=== PATIENT | female | born 1945 | race Caucasian/White ===

== ENCOUNTER 2016-06-24 10:42 | Emergency (ER) | payer MEDICARE, OTHER ==
[2016-06-24 10:42] VITALS: BMI 26.2
[2016-06-24] MEDS ORDERED: TraMADol/Apap 37.5/325 mg Tab PO STA (11:04)
--- NOTE | 2016-06-24 11:08 | ED PDOC ---
Arrival/HPI - General Historian: Patient, Spouse - General Chief Complaint: Lower Extremity Problem/Injury Time Seen by Provider: 06/24/16 10:44 - History of Present Illness Narrative History of Present Illness (Text): 06/24/16 11:05 71 y/o female, pmh including hyperlipidemia, nkda, c/o rt. knee pain x 1 week with no fall or trauma. Aching pain, on and off, aggravated by walking, no change of the temperature of the feet, no dizziness, no headache or night sweat , no palpitation, no rash, no other medical or psychological complaints. (Brennon Mercer) Past Medical History - Provider Review Nursing Documentation Reviewed: Yes - Infectious Disease Hx of Infectious Diseases: None - Tetanus Immunization Tetanus Immunization: Unknown - Reproductive Menopause: Yes - Cardiac Hx Pacemaker: No - Neurological Hx Paralysis: No - Endocrine/Metabolic Hx Diabetes Mellitus Type 2: Yes - Hematological/Oncological Hx Blood Transfusions: No Hx Blood Transfusion Reaction: No - Musculoskeletal/Rheumatological Hx Musculoskeletal Disorders: No - Psychiatric Hx Emotional Abuse: No Hx Physical Abuse: No Hx Substance Use: No - Surgical History Hx Cholecystectomy: Yes Hx Hysterectomy: Yes - Anesthesia Hx Anesthesia Reactions: Yes Hx Malignant Hyperthermia: No - Suicidal Assessment Feels Threatened In Home Enviroment: No Family/Social History - Physician Review Nursing Documentation Reviewed: Yes Family/Social History: Unknown Family HX Smoking Status: Never Smoked Hx Alcohol Use: No Hx Substance Use: No Hx Substance Use Treatment: No Allergies/Home Meds Allergies/Adverse Reactions: Allergies seasonal Allergy (Uncoded 06/24/16 10:56) CONGESTION Home Medications: Home Meds Medication Instructions Recorded Confirmed Aspirin [Ecotrin] 81 mg PO DAILY 06/24/16 06/24/16 Simvastatin [Zocor] 0 mg PO DAILY 06/24/16 06/24/16 Review of Systems - Review of Systems Constitutional: absent: Fatigue, Fevers Eyes: absent: Vision Changes ENT: absent: Hearing Changes Respiratory: absent: Cough, Sputum Cardiovascular: absent: Chest Pain Gastrointestinal: absent: Abdominal Pain Musculoskeletal: Arthralgias. absent: Back Pain, Neck Pain, Joint Swelling, Myalgias Neurological: absent: Headache, Focal Weakness, Gait Changes Physical Exam Vital Signs Reviewed: Yes Temperature: Afebrile Blood Pressure: Normal Pulse: Regular Respiratory Rate: Normal Appearance: Positive for: Well-Appearing, Non-Toxic, Uncomfortable Pain Distress: Moderate Mental Status: Positive for: Alert and Oriented X 3 - Systems Exam Head: Present: Atraumatic, Normocephalic Pupils: Present: PERRL Extroacular Muscles: Present: EOMI Conjunctiva: Present: Normal Mouth: Present: Moist Mucous Membranes Neck: Present: Normal Range of Motion Respiratory/Chest: Present: Clear to Auscultation, Good Air Exchange. No: Respiratory Distress, Accessory Muscle Use Cardiovascular: Present: Regular Rate and Rhythm, Normal S1, S2. No: Murmurs Abdomen: Present: Normal Bowel Sounds. No: Tenderness, Distention, Peritoneal Signs Back: Present: Normal Inspection Upper Extremity: Present: Normal Inspection. No: Cyanosis, Edema Lower Extremity: Present: Normal Inspection, Other (Rt. knee: +ttp on the anterior and medial aspect of the knee with mild swelling, no cellulitis or streaking, no ulcers, negative edward and michele signs, FROM without limitation , sensation intact, motor 5/5, +DPPT pulses, capillary refill< 2 seconds, neurovascular intact. ). No: Edema Neurological: Present: GCS=15, Speech Normal, Motor Func Grossly Intact, Memory Normal Skin: Present: Warm, Dry, Normal Color. No: Rashes Psychiatric: Present: Alert, Oriented x 3, Normal Insight, Normal Concentration Vital Signs Temp Pulse Resp BP Pulse Ox 06/24/16 11:21 99.6 F 80 18 147/69 98 06/24/16 10:52 99.6 F 80 18 147/69 98 Medical Decision Making - RAD Interpretation Manager Filter: Radiologist ED Course and Treatment: I was available for consultation during PA evaluation. The chart was reviewed by me, and I agree with disposition. The documented history was done by the physician human resource statistician. The documented physical exam was done by the physician human resource statistician. The documented procedures were done by the physician human resource statistician. (Michele Lange) 06/24/16 11:08 -rt. knee xray -RLE venuous doppler -tramadol -observe and reassess 06/24/16 12:29 -RLE Venuous Doppler: as per preliminary report, no acute DVT -Rt. knee xray: show no fracture or dislocation -Pain decresed with the tramadol. -Cane and obed wrap ordered, advised bed rest and ice compression. -Pt. and the daughter request arthrocentesis which I don't recommend as there is no signs of infection , risk of infection will be greater than the temporary relief of the joint swelling. Plus the patient might need steroid injection as well. Pt. and the daughter agreed and they will follow up with her own orthopedic DR. Justice. -Pt. stated that she has gerd, will give tramadol. I checked the [facility] which the patient has not been prescribed narcotics in 2017 with no profiles can be located in the [facility] site. -Discharge home with tramadol, obed wrap, cane, ice compression, avoid walking, follow up with your own pmd and orthopedic Dr. Justice within 2 days, return to the ER for any new or worsening signs or symptoms. (Brennon Mercer) - RAD Interpretation Radiology Orders: 06/24/16 11:04 KNEE W PATELLA RIGHT 3 VIEW [RAD] Stat DUPLEX LOWER EXTRM VEIN RIGHT [US] Stat RLE Venuous Doppler: as per preliminary report, no acute DVT Rt. knee xray: no acute fracture (Brennon Mercer) - Medication Orders Current Medication Orders: Discontinued Medications Tramadol/Acetaminophen (Ultracet 37.5/325 Mg) 2 tab PO STAT STA Stop: 06/24/16 11:05 Last Admin: 06/24/16 12:10 Dose: 2 tab - PA / CLINICAL INFORMATICIST / Resident Statement MD/DO has reviewed & agrees with the documentation as recorded. Disposition/Present on Arrival - Present on Arrival Any Indicators Present on Arrival: No History of DVT/PE: No History of Uncontrolled Diabetes: No Urinary Catheter: No History of Decub. Ulcer: No History Surgical Site Infection Following: None - Disposition Have Diagnosis and Disposition been Completed?: Yes Disposition Time: 12:32 Patient Plan: Discharge - Disposition Diagnosis: Bursitis of right knee Disposition: HOME/ ROUTINE Patient Problems: Current Active Problems Problem Status Onset Bursitis of right knee Acute Condition: GOOD Additional Instructions: Discharge home with tramadol, obed wrap, cane, ice compression, avoid walking, follow up with your own pmd and orthopedic Dr. Justice within 2 days, return to the ER for any new or worsening signs or symptoms. Prescriptions: traMADol/Acetaminophen [Ultracet 37.5/325 mg] 2 tab PO QID PRN #16 tab PRN Reason: Other Referrals: [facility] Musa Realireza, [Primary Care Provider] - Follow up with primary Graham Justice MD [Staff Provider] - Follow up with primary [facility] [Outside] - Follow up with primary Forms: WORK NOTE
--- NOTE | 2016-06-24 11:41 | US ---
PROCEDURE: Right lower extremity venous US HISTORY: Leg pain and swelling. Evaluate for DVT. PHYSICIAN(S): Andres Dial M.D. TECHNIQUE: Duplex sonography and color-flow Doppler with graded compression were used to evaluate the deep venous system of the right lower extremity. FINDINGS: The visualized deep venous system of the right lower extremity is sonographically normal and compressible. Normal waveforms and augmentation are seen. There is no sonographic evidence for deep venous thrombosis in the visualized segments of the right lower extremity. IMPRESSION: 1. No sonographic evidence for deep venous thrombosis in the visualized segments of the right lower extremity.
--- NOTE | 2016-06-24 12:29 | RAD ---
PROCEDURE: Right Knee Radiographs. HISTORY: rt. knee pain x 1 week COMPARISON: None. FINDINGS: BONES: No acute fracture. There is a bone fragment adjacent to the head of the fibula that is most likely a chronic injury JOINTS: Normal. No osteoarthritis. JOINT EFFUSION: None. OTHER FINDINGS: None. IMPRESSION: No acute fracture
[2016-06-24 12:41] VITALS: BP 145/65; PULSE 75; TEMP 98.7
[2016-06-24 12:44] VITALS: RESP 16; O2SAT 99
== END 2016-06-24 12:43 | disposition home or self-care (01) ==
LOC: ED 10:42
DX: M71.9 Bursopathy, unspecified (principal); E78.5 Hyperlipidemia, unspecified; E11.9 Type 2 diabetes mellitus without complications

== ENCOUNTER 2017-03-23 12:55 | Emergency (ER) | payer MEDICARE, OTHER ==
[2017-03-23 13:54] VITALS: BP 157/78; PULSE 71; RESP 18; TEMP 98.4; O2SAT 97; BMI 26.7
--- NOTE | 2017-03-23 14:41 | ED PDOC ---
Arrival/HPI - General Chief Complaint: Rib Injury Time Seen by Provider: 03/23/17 13:44 Historian: Patient - History of Present Illness Narrative History of Present Illness (Text): 03/23/17 13:45 Dara Navarro is a 72 year old female, whose past medical history includes high cholesterol and arthritis, who presents to the emergency department complaining of right sided lower rib, right shoulder, and right knee pain s/p falling on her right side 3 days ago. Patient states that three days ago she missed a step while walking down the steps and tripped. No LOC or head injury. Patient denies any fever, chills, shortness of breath, nausea, vomiting, diarrhea, urinary symptoms, headache, dizziness, or any other complaints. PMD: Dr. Dial Time/Duration: < week Symptom Onset: Sudden Symptom Course: Unchanged Activities at Onset: Significant Context: Walking Past Medical History - Provider Review Nursing Documentation Reviewed: Yes - Infectious Disease Hx of Infectious Diseases: None - Tetanus Immunization Tetanus Immunization: Unknown - Cardiac Hx Cardiac Disorders: Yes - Pulmonary Hx Respiratory Disorders: No - Neurological Hx Neurological Disorder: No - HEENT Hx HEENT Disorder: No - Renal Hx Renal Disorder: No - Endocrine/Metabolic Hx Endocrine Disorders: Yes Hx Diabetes Mellitus Type 2: Yes - Hematological/Oncological Hx Blood Disorders: No - Integumentary Hx Dermatological Disorder: Yes - Musculoskeletal/Rheumatological Hx Musculoskeletal Disorders: Yes Hx Arthritis: Yes - Gastrointestinal Hx Gastrointestinal Disorders: No - Genitourinary/Gynecological Hx Genitourinary Disorders: No - Psychiatric Hx Psychophysiologic Disorder: No Hx Substance Use: No - Surgical History Hx Cholecystectomy: Yes Hx Hysterectomy: Yes - Anesthesia Hx Anesthesia: Yes Hx Anesthesia Reactions: Yes Hx Malignant Hyperthermia: No - Suicidal Assessment Feels Threatened In Home Enviroment: No Family/Social History - Physician Review Nursing Documentation Reviewed: Yes Family/Social History: No Known Family HX Smoking Status: Never Smoked Hx Alcohol Use: No Hx Substance Use: No Hx Substance Use Treatment: No Allergies/Home Meds Allergies/Adverse Reactions: Allergies seasonal Allergy (Uncoded 06/24/16 10:56) CONGESTION Home Medications: Home Meds Medication Instructions Recorded Confirmed Aspirin [Ecotrin] 81 mg PO DAILY 06/24/16 06/24/16 Simvastatin [Zocor] 0 mg PO DAILY 06/24/16 06/24/16 Review of Systems - Review of Systems Constitutional: absent: Fevers, Night Sweats Eyes: absent: Vision Changes ENT: absent: Hearing Changes Respiratory: absent: SOB, Cough Cardiovascular: absent: Chest Pain Gastrointestinal: absent: Abdominal Pain Genitourinary Female: absent: Dysuria, Frequency Musculoskeletal: Other (Right-sided lower rib, right shoulder, and right knee pain) Skin: absent: Rash Neurological: absent: Headache Endocrine: absent: Diaphoresis Hemo/Lymphatic: absent: Adenopathy Psychiatric: absent: Anxiety, Depression Physical Exam Vital Signs Reviewed: Yes Vital Signs Temp Pulse Resp BP Pulse Ox 03/23/17 13:49 98.4 F 71 18 157/78 H 97 Temperature: Afebrile Blood Pressure: Hypertensive Pulse: Regular Respiratory Rate: Normal Appearance: Positive for: Well-Appearing, Non-Toxic, Comfortable Pain Distress: None Mental Status: Positive for: Alert and Oriented X 3 - Systems Exam Head: Present: Atraumatic, Normocephalic Pupils: Present: PERRL Extroacular Muscles: Present: EOMI Conjunctiva: Present: Normal Mouth: Present: Moist Mucous Membranes Neck: Present: Normal Range of Motion. No: MIDLINE TENDERNESS, Paraspinal Tenderness Respiratory/Chest: Present: Tender to Palpation (Tenderness to lateral and anterior lower ribs) Cardiovascular: Present: Regular Rate and Rhythm, Normal S1, S2. No: Murmurs Abdomen: Present: Normal Bowel Sounds. No: Tenderness, Distention, Peritoneal Signs Back: Present: Normal Inspection. No: CVA Tenderness, Midline Tenderness, Paraspinal Tenderness Upper Extremity: Present: Tenderness (to right anterior shoulder; left shoulder normal; Full ROM bilaterally), Other (hypothenar of right hand; left normal ) Lower Extremity: Present: Other (Hips normal; no midline tenderness) Neurological: Present: GCS=15, CN II-XII Intact, Speech Normal Skin: Present: Warm, Dry, Normal Color. No: Rashes Psychiatric: Present: Alert, Oriented x 3, Normal Insight, Normal Concentration Medical Decision Making ED Course and Treatment: 03/23/17 14:48 Impression: 72 year old complaining of right sided lower rib, right shoulder, and right knee pain s/p falling on her right side 3 days ago. Differential Diagnosis included but are not limited to: Mechanical Fall Plan: -- Right hand X-ray -- Right Ribs and Chest X-ray -- Right shoulder X-ray -- Tylenol and Toradol -- Reassess and disposition Prior Visits: Notes and results from previous visits were reviewed. Patient was last seen in the emergency department on 06/24/16 for rt. knee pain x 1 week. Patient was discharged home. Progress Notes: 03/23/17 15:40 Right Hand x-ray: Creator : Zaira Lomeli MD FINDINGS: BONES:There is no acute displaced fracture or bone destruction. There is diffuse bone demineralization. 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 There is also severe degenerative osteoarthrosis in the 1st [facility] joint. There is moderate degenerative osteoarthrosis in the distal interphalangeal joints and mild degenerative osteoarthrosis in the proximal interphalangeal joints. SOFT TISSUES:Normal. OTHER FINDINGS:None. IMPRESSION: No acute fracture or dislocation. 03/23/17 15:41 Chest and Right Rib x-ray: Creator : Zaira Lomeli MD FINDINGS: RIGHT RIBS:There is no acute fracture or bone destruction. There is diffuse bone demineralization. LUNGS:The lungs are well inflated and clear PLEURA:No pneumothorax or pleural fluid. CARDIOVASCULAR:Normal sized heart. No pulmonary vascular congestion. OTHER FINDINGS:None. IMPRESSION: No acute rib fracture. Clear lungs. 03/23/17 15:42 Right Shoulder X-ray: Creator : Zaira Lomeli MD FINDINGS: BONES:There is diffuse bone demineralization. There is no acute displaced fracture or bone destruction JOINTS:There is mild degenerative osteoarthrosis in the acromioclavicular joint. The glenohumeral joint is normal. SOFT TISSUES:Normal. OTHER FINDINGS:None. IMPRESSION: No acute fracture or dislocation. Patient's Xrays are negative for fracture. Patient was given instructions for incentive spirametry to use at home. She was advised to take motrin for pain. She was advised to return to the ED with any shortness of breathe or with any concerns. - RAD Interpretation Radiology Orders: 03/23/17 13:57 HAND RIGHT 3 VIEWS [RAD] Stat RIBS RIGHT & PA CHEST [RAD] Stat SHOULDER RIGHT [RAD] Stat - Medication Orders Current Medication Orders: Discontinued Medications Acetaminophen (Tylenol 325mg Tab) 650 mg PO STAT STA Stop: 03/23/17 13:57 Last Admin: 03/23/17 15:07 Dose: 650 mg MAR Pain/Vitals Document 03/23/17 15:07 OCS (Rec: 03/23/17 15:07 OCS [place] [id number]) Pain Reassessment Is This A Pain ReAssessment? Yes Sleep Is patient sleeping during reassessment? No Presence of Pain Presence of Pain Yes Pain Scale Used Pain Scale Used Numeric Location Left, Right or Bilateral Left Pain Location Body Site Abdomen Description Constant Intensity 8 Scale Used Numeric Aggravating Factors ADL's Ketorolac Tromethamine (Toradol) 30 mg IM STAT STA Stop: 03/23/17 13:58 Last Admin: 03/23/17 15:05 Dose: 30 mg MAR Pain Assessment Document 03/23/17 15:05 OCS (Rec: 03/23/17 15:07 [facility] Pain Reassessment Is this a pain reassessment? Yes Sleep Is patient sleeping during reassessment? No Presence of Pain Presence of Pain Yes Pain Scale Used Pain Scale Used Numeric Location Pain Location Body Site Abdomen Description Description Constant Intensity of Pain at present 8 IM Administration Charges Document 03/23/17 15:05 OCS (Rec: 03/23/17 15:07 [email or web address] Injection Site MAR Injection Site Left Arm Charges for Administration # of IM Administrations 1 - Scribe Statement The provider has reviewed the documentation as recorded by the Nisreen Zamora Provider Scribe Attestation: All medical record entries made by the Scribe were at my direction and personally dictated by me. I have reviewed the chart and agree that the record accurately reflects my personal performance of the history, physical exam, medical decision making, and the department course for this patient. I have also personally directed, reviewed, and agree with the discharge instructions and disposition. Disposition/Present on Arrival - Present on Arrival Any Indicators Present on Arrival: No History of DVT/PE: No History of Uncontrolled Diabetes: No Urinary Catheter: No History of Decub. Ulcer: No History Surgical Site Infection Following: None - Disposition Have Diagnosis and Disposition been Completed?: Yes Diagnosis: Rib contusion, Shoulder contusion Disposition: HOME/ ROUTINE Disposition Time: 15:55 Patient Plan: Discharge Condition: IMPROVED Discharge Instructions (ExitCare): Shoulder Pain (ED), Rib Contusion (ED) Additional Instructions: Ms Godoyde, thank you for letting us take care of you today. Your provider was Dr. Gerber. You were treated for Rib contusion, Shoulder Contusion. The emergency medical care you received today was directed at your acute symptoms. If you were prescribed any medication, please fill it and take as directed. It may take several days for your symptoms to resolve. Return to the Emergency Department if your symptoms worsen, do not improve, or if you have any other problems. Please contact your doctor or call one of the physicians/clinics you have been referred to that are listed on the Patient Visit Information form that is included in your discharge packet. Bring any paperwork you were given at discharge with you along with any medications you are taking to your follow up visit. Our treatment cannot replace ongoing medical care by a primary care provider (PCP) outside of the emergency department. Thank you for allowing the [email or web address] team to be part of your care today. If you had an X-Ray or CT scan: A Radiologist will review the ED reading if any change in treatment is needed we will contact you. If you had a blood, urine, or wound culture: It will take several days for the results, if any change in treatment is needed we will contact you. If you had an STI test: It will take 48 hours for the results. Please call after 1 week if you have not heard back. Prescriptions: Ibuprofen [Motrin] 600 mg PO Q6 PRN #30 tab PRN Reason: Pain, Moderate (4-7) Referrals: Link Manuel MD [Primary Care Provider] - Follow up with primary Forms: [employer] (Maltese)
--- NOTE | 2017-03-23 15:25 | RAD ---
PROCEDURE: Right Hand Radiographs. HISTORY: fall r/o fx COMPARISON: None. FINDINGS: BONES: There is no acute displaced fracture or bone destruction. There is diffuse bone demineralization. 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 There is also severe degenerative osteoarthrosis in the [facility]st [facility] joint. There is moderate degenerative osteoarthrosis in the distal interphalangeal joints and mild degenerative osteoarthrosis in the proximal interphalangeal joints. SOFT TISSUES: Normal. OTHER FINDINGS: None. IMPRESSION: No acute fracture or dislocation.
--- NOTE | 2017-03-23 15:26 | RAD ---
PROCEDURE: Radiographs of the Right Shoulder HISTORY: fall r/o fx COMPARISON: No prior. FINDINGS: BONES: There is diffuse bone demineralization. There is no acute displaced fracture or bone destruction JOINTS: There is mild degenerative osteoarthrosis in the acromioclavicular joint. The glenohumeral joint is normal. SOFT TISSUES: Normal. OTHER FINDINGS: None. IMPRESSION: No acute fracture or dislocation.
--- NOTE | 2017-03-23 15:28 | RAD ---
PROCEDURE: Radiographs of the Chest and Right Ribs. HISTORY: fall r/o fx COMPARISON: 10/07/2014. TECHNIQUE: Frontal radiograph of the chest and multiple oblique radiographs of the right ribs were obtained. FINDINGS: RIGHT RIBS: There is no acute fracture or bone destruction. There is diffuse bone demineralization. LUNGS: The lungs are well inflated and clear PLEURA: No pneumothorax or pleural fluid. CARDIOVASCULAR: Normal sized heart. No pulmonary vascular congestion. OTHER FINDINGS: None. IMPRESSION: No acute rib fracture. Clear lungs.
== END 2017-03-23 16:05 | disposition home or self-care (01) ==
LOC: ED 12:55
DX: S20.211A Contusion of right front wall of thorax, initial encounter (principal); S40.011A Contusion of right shoulder, initial encounter; W10.9XXA Fall (on) (from) unspecified stairs and steps, initial encounter; Y92.9 Unspecified place or not applicable
CPT/HCPCS: 71101; 73030; 73130; 96372; 99283; J1885

== ENCOUNTER 2017-11-11 17:52 | Emergency (ER) | payer MEDICARE ==
[2017-11-11 17:53] VITALS: BMI 26.7
[2017-11-11 18:29] VITALS: BP 165/90; RESP 18; O2SAT 97
--- NOTE | 2017-11-11 19:26 | ED PDOC ---
Arrival/HPI - General Chief Complaint: Cough, Cold, Congestion Time Seen by Provider: 11/11/17 18:24 Historian: Patient - History of Present Illness Narrative History of Present Illness (Text): 11/11/17 19:16 72yo female with no pmhx present with 2days history of nonproductive cough, fever, lower back pain. States she took unknown analgesic yesterday. She denies chest pain, SOB, sick contact, travel, any other complaint. Past Medical History - Provider Review Nursing Documentation Reviewed: Yes - Infectious Disease Hx of Infectious Diseases: None - Tetanus Immunization Tetanus Immunization: Unknown - Reproductive Menopause: Yes - Cardiac Hx Cardiac Disorders: Yes - Pulmonary Hx Respiratory Disorders: No - Neurological Hx Neurological Disorder: No - HEENT Hx HEENT Disorder: No - Renal Hx Renal Disorder: No - Endocrine/Metabolic Hx Endocrine Disorders: Yes Hx Diabetes Mellitus Type 2: Yes - Hematological/Oncological Hx Blood Disorders: No - Integumentary Hx Dermatological Disorder: Yes - Musculoskeletal/Rheumatological Hx Musculoskeletal Disorders: Yes Hx Arthritis: Yes - Gastrointestinal Hx Gastrointestinal Disorders: No - Genitourinary/Gynecological Hx Genitourinary Disorders: No - Psychiatric Hx Psychophysiologic Disorder: No Hx Substance Use: No - Surgical History Hx Cholecystectomy: Yes Hx Hysterectomy: Yes - Anesthesia Hx Anesthesia: Yes Hx Anesthesia Reactions: Yes Hx Malignant Hyperthermia: No - Suicidal Assessment Feels Threatened In Home Enviroment: No Family/Social History - Physician Review Nursing Documentation Reviewed: Yes Family/Social History: Unknown Family HX Smoking Status: Never Smoked Hx Alcohol Use: No Hx Substance Use: No Hx Substance Use Treatment: No Allergies/Home Meds Allergies/Adverse Reactions: Allergies seasonal Allergy (Uncoded 03/23/17 23:16) CONGESTION Home Medications: Home Meds Medication Instructions Recorded Confirmed Aspirin [Ecotrin] 81 mg PO DAILY 06/24/16 06/24/16 Simvastatin [Zocor] 0 mg PO DAILY 06/24/16 06/24/16 Review of Systems - Physician Review All systems were reviewed & negative as marked: Yes - Review of Systems Constitutional: Fevers Eyes: Normal ENT: Normal Respiratory: Cough. absent: SOB, Sputum, Wheezing Cardiovascular: Normal Gastrointestinal: Normal Genitourinary Female: Normal Musculoskeletal: Normal Skin: Normal Neurological: Normal Endocrine: Normal Hemo/Lymphatic: Normal Psychiatric: Normal Physical Exam Vital Signs Reviewed: Yes Vital Signs Temp Pulse Resp BP Pulse Ox 11/11/17 21:17 99.6 F 90 18 97 11/11/17 21:04 99.6 F 11/11/17 20:34 100.3 F H 11/11/17 18:22 100.1 F H 92 H 18 165/90 H 97 Temperature: Febrile Blood Pressure: Normal Pulse: Regular Respiratory Rate: Normal Appearance: Positive for: Well-Appearing, Non-Toxic, Comfortable Pain Distress: None Mental Status: Positive for: Alert and Oriented X 3 - Systems Exam Head: Present: Atraumatic, Normocephalic Pupils: Present: PERRL Extroacular Muscles: Present: EOMI Conjunctiva: Present: Normal Mouth: Present: Moist Mucous Membranes Neck: Present: Normal Range of Motion Respiratory/Chest: Present: Clear to Auscultation, Good Air Exchange. No: Respiratory Distress, Accessory Muscle Use, Wheezes, Decreased Breath Sounds, Rales, Retracting, Rhonchi Cardiovascular: Present: Regular Rate and Rhythm, Normal S1, S2. No: Murmurs Abdomen: No: Tenderness, Distention, Peritoneal Signs Back: Present: Normal Inspection Upper Extremity: Present: Normal Inspection. No: Cyanosis, Edema Lower Extremity: Present: Normal Inspection. No: Edema Neurological: Present: GCS=15, CN II-XII Intact, Speech Normal Skin: Present: Warm, Dry, Normal Color. No: Rashes Psychiatric: Present: Alert, Oriented x 3, Normal Insight, Normal Concentration Medical Decision Making ED Course and Treatment: 11/13/17 14:41 PT presented for stated history. sh was not hypoxic and in no distress. Lab was unremarkable. Xray - NAD Result was DW the pt. she was placed on abx secondary to her symptoms and fever. Referred to her PMD. TRT ED for any new or worsening symptoms - Lab Interpretations Microbiology Results: Microbiology Results 11/11/17 20:09 Blood-Venous Blood Culture - Preliminary NO GROWTH AFTER 24 HOURS 11/11/17 19:39 Blood-Venous Blood Culture - Preliminary NO GROWTH AFTER 24 HOURS Lab Results: 11/11/17 19:39 11/11/17 19:39 Lab Results 11/11/17 19:39: Sodium 139, Potassium 4.3, Chloride 104, Carbon Dioxide 28, Anion Gap 12, BUN 13, Creatinine 0.6 L, Est GFR ( Amer) > 60, Est GFR ( Non-Af Amer) > 60, Random Glucose 121 H, Calcium 9.3, Total Bilirubin 1.1, AST 34, ALT 26, Alkaline Phosphatase 66, Total Protein 7.7, Albumin 4.3, Globulin 3.4, Albumin/Globulin Ratio 1.2 11/11/17 19:39: PT 11.1, INR 0.97, APTT 30.3 11/11/17 19:39: WBC 9.4, RBC 4.31, Hgb 13.2, Hct 39.1, MCV 90.7, MCH 30.6, MCHC 33.8, RDW 14.3, Plt Count 228, MPV 9.6, Gran % 74.6 H, Lymph % (Auto) 17.3 L, [place] % (Auto) 5.5, Eos % (Auto) 2.5, Baso % (Auto) 0.1, Gran # 6.99 H, Lymph # ( Auto) 1.6, [place] # (Auto) 0.5, Eos # (Auto) 0.2, Baso # (Auto) 0.01 - RAD Interpretation Radiology Orders: 11/11/17 18:33 CHEST TWO VIEWS (PA/LAT) [RAD] Stat - Medication Orders Current Medication Orders: Discontinued Medications Acetaminophen (Tylenol 325mg Tab) 650 mg PO STAT STA Stop: 11/11/17 19:17 Last Admin: 11/11/17 19:43 Dose: 650 mg MAR Pain/Vitals Document 11/11/17 19:43 SS (Rec: 11/11/17 19:43 SS [id number]) Pain Reassessment Is This A Pain ReAssessment? No Sleep Is patient sleeping during reassessment? No Presence of Pain Presence of Pain No Amoxicillin/Clavulanate Potassium (Augmentin 500 Mg-125 Mg Tab) 1 tab PO STAT STA PRN Reason: Protocol Stop: 11/11/17 20:59 Last Admin: 11/11/17 21:14 Dose: 1 tab Benzonatate (Tessalon Perles) 100 mg PO TID STA Stop: 11/11/17 20:59 Last Admin: 11/11/17 21:14 Dose: 100 mg Disposition/Present on Arrival - Present on Arrival Any Indicators Present on Arrival: No History of DVT/PE: No History of Uncontrolled Diabetes: No Urinary Catheter: No History of Decub. Ulcer: No History Surgical Site Infection Following: None - Disposition Have Diagnosis and Disposition been Completed?: Yes Diagnosis: Cough Disposition: HOME/ ROUTINE Disposition Time: 21:05 Patient Plan: Discharge Condition: STABLE Discharge Instructions (ExitCare): Cough in Adults Additional Instructions: Follow up with your doctor this week Return to ED immediately for worsening symptoms Prescriptions: Amoxicillin/Potassium Clav [Augmentin 500-125 Tablet] 1 each PO BID #14 tablet Promethazine [Phenergan Syrup] 6.25 mg PO Q6 #100 ml Referrals: Link Manuel MD [Staff Provider] - Follow up with primary Forms: [employer] (Polish)
[2017-11-11 19:56] LABS: BASO # 0.01 K/mm3 (0.0-2.0); BASO % 0.1 % (0.0-3.0); EOS # 0.2 (0.0-0.7); EOS % 2.5 % (1.5-5.0); GRAN # 6.99 (1.4-6.5); GRAN % 74.6 % (50.0-68.0); HEMOGLOBIN 13.2 g/dL (12.0-16.0); LYMPH # 1.6 (1.2-3.4); LYMPH % 17.3 % (22.0-35.0); MEAN CELL VOLUME 90.7 fl (80.0-105.0); MEAN CORPUSCULAR HEMOGLOBIN 30.6 pg (25.0-35.0); MEAN CORPUSCULAR HGB CONC 33.8 g/dl (31.0-37.0); MEAN PLATELET VOLUME 9.6 fl (7.0-11.0); MONO # 0.5 (0.1-0.6); MONO % 5.5 % (1.0-6.0); RBC 4.31 10^6/uL (3.5-6.1); RED CELL DISTRIBUTION WIDTH 14.3 % (11.5-14.5); WHITE BLOOD COUNT 9.4 10^3/ul (4.5-11.0)
[2017-11-11 20:00] LABS: INR 0.97; PARTIAL THROMBOPLASTIN TIME 30.3 Seconds (25.1-36.5); PROTHROMBIN TIME 11.1 SECONDS (9.4-12.5)
[2017-11-11 20:11] LABS: ALB/GLOB RATIO 1.2 (1.1-1.8); ALBUMIN 4.3 g/dL (3.0-4.8); ALT/SGPT 26 U/L (7-56); AST/SGOT 34 U/L (14-36); BLOOD UREA NITROGEN 13 mg/dL (7-21); CALCIUM 9.3 mg/dL (8.4-10.5); GFR NON-AFRICAN AMERICAN > 60
[2017-11-11] MEDS ORDERED: Amoxicillin-Clav 500-125 mg Tab PO STA (20:58)
[2017-11-11 21:04] VITALS: TEMP 99.6
[2017-11-11 21:19] VITALS: PULSE 90
--- NOTE | 2017-11-12 09:25 | RAD ---
HISTORY: Cough COMPARISON: 03/23/2017. TECHNIQUE: Chest PA and lateral FINDINGS: LINES AND TUBES: None. LUNG AND PLEURA: The lungs are well inflated and clear. No pleural effusion or pneumothorax. HEART AND MEDIASTINUM: The heart is not enlarged. The hilar and mediastinal contours are within normal limits. SKELETAL STRUCTURES: The bony structures are within normal limits for the patient's age. VISUALIZED UPPER ABDOMEN: Normal. OTHER FINDINGS: None. IMPRESSION: No active pulmonary disease.
== END 2017-11-11 21:30 | disposition home or self-care (01) ==
LOC: ED 17:52
DX: R05 Cough (principal); E11.9 Type 2 diabetes mellitus without complications

== ENCOUNTER 2018-06-30 12:29 | Emergency (ER) | payer MEDICARE ==
[2018-06-30 12:57] VITALS: BMI 27.1
[2018-06-30 12:58] VITALS: RESP 18
--- NOTE | 2018-06-30 13:20 | ED PDOC ---
Arrival/HPI - General Time Seen by Provider: 06/30/18 12:39 Historian: Patient - History of Present Illness Narrative History of Present Illness (Text): 06/30/18 13:17 73 year old female, whose past medical history includes high cholesterol and arthritis, who presents to the emergency department complaining of right elbow and right knee pain with abrasion s/p falling on the right side while at the park an hour ago. Patient states walking in the park when she tripped on a branch and fell on her right side. No loss of consciousness or head injury. Patient denies other injuries. . Time/Duration: 1 hour Symptom Course: Unchanged Activities at Onset: Light Context: Walking, Street Past Medical History - Provider Review Nursing Documentation Reviewed: Yes - Infectious Disease Hx of Infectious Diseases: None - Tetanus Immunization Tetanus Immunization: Unknown - Cardiac Hx Cardiac Disorders: Yes - Pulmonary Hx Respiratory Disorders: No - Neurological Hx Neurological Disorder: No - HEENT Hx HEENT Disorder: No - Renal Hx Renal Disorder: No - Endocrine/Metabolic Hx Endocrine Disorders: Yes Hx Diabetes Mellitus Type 2: Yes - Hematological/Oncological Hx Blood Disorders: No - Integumentary Hx Dermatological Disorder: Yes - Musculoskeletal/Rheumatological Hx Musculoskeletal Disorders: Yes Hx Arthritis: Yes - Gastrointestinal Hx Gastrointestinal Disorders: No - Genitourinary/Gynecological Hx Genitourinary Disorders: No - Psychiatric Hx Psychophysiologic Disorder: No Hx Substance Use: No - Surgical History Hx Cholecystectomy: Yes Hx Hysterectomy: Yes - Anesthesia Hx Anesthesia: Yes Hx Anesthesia Reactions: Yes Hx Malignant Hyperthermia: No - Suicidal Assessment Feels Threatened In Home Enviroment: No Family/Social History - Physician Review Nursing Documentation Reviewed: Yes Family/Social History: Unknown Family HX Smoking Status: Never Smoked Hx Alcohol Use: No Hx Substance Use: No Hx Substance Use Treatment: No Allergies/Home Meds Allergies/Adverse Reactions: Allergies seasonal Allergy (Uncoded 06/30/18 12:57) CONGESTION Home Medications: Home Meds Medication Instructions Recorded Confirmed Aspirin [Ecotrin] 81 mg PO DAILY 06/24/16 06/24/16 Simvastatin [Zocor] 0 mg PO DAILY 06/24/16 06/24/16 Aspirin [Adult Aspirin] 81 mg PO DAILY 11/25/17 11/25/17 Rosuvastatin Calcium [Crestor] 10 mg PO DAILY 11/25/17 11/25/17 Review of Systems - Physician Review All systems were reviewed & negative as marked: Yes - Review of Systems Musculoskeletal: Other (Right elbow and knee pain with abrasion to both. ) Physical Exam - Physical Exam Narrative Physical Exam (Text): 06/30/18 13:21 Gen: VS reviewed, alert, well developed, well nourished, nontoxic, mild distress. ENT: normal pharynx. Eye: EOMI, PERRL. Neck: no JVD, supple, no adenopathy. CV: regular rate, regular rhythm, no rubs, no murmur, no gallops, S1, S2, pulses equal and strong. Pulm: no distress, clear to auscultation, no wheeze, no rhonchi, breath sounds equal, no rales. Abd: soft, nontender, no guarding, no rebound, no rigidity, normal bowel sounds. Ext: no edema. Skin: good color, no rash, no cyanosis. Psych: responds appropriately to questions, normal affect. Neuro: oriented x 3, CN2-12 intact grossly, motor intact, sensation intact. Vital Signs Reviewed: Yes Vital Signs Temp Pulse Resp BP Pulse Ox 06/30/18 12:57 98.8 F 71 18 147/71 96 Temperature: Afebrile Blood Pressure: Normal Pulse: Regular Respiratory Rate: Normal Appearance: Positive for: Well-Appearing, Non-Toxic, Comfortable Pain Distress: Mild Mental Status: Positive for: Alert and Oriented X 3 - Systems Exam Upper Extremity: Present: Tenderness (Mild tenderness to right elbow olecranon process. ) Lower Extremity: Present: Other (Right lateral tibial plateau. ) Skin: Present: Abrasion (Minor superficial abrasion to right elbow and knee. ) Medical Decision Making ED Course and Treatment: 06/30/18 14:38 accidental fall with right knee and right elbow contusion, no overt fracture, stable for dc - RAD Interpretation Narrative RAD Interpretations (Text): 06/30/18 14:35 Elbow X-Ray Impression: Unremarkable radiographs of the right elbow. 06/30/18 14:36 Knee X-ray Impression: No acute findings Radiology Orders: 06/30/18 13:09 ELBOW RIGHT 3 VIEWS ROUTINE [RAD] Stat KNEE W PATELLA RIGHT 3 VIEW [RAD] Stat - Scribe Statement The provider has reviewed the documentation as recorded by the Scribtash Jacinto All medical record entries made by the Scribe were at my direction and personally dictated by me. I have reviewed the chart and agree that the record accurately reflects my personal performance of the history, physical exam, medical decision making, and the department course for this patient. I have also personally directed, reviewed, and agree with the discharge instructions and disposition. Disposition/Present on Arrival - Present on Arrival Any Indicators Present on Arrival: No History of DVT/PE: No History of Uncontrolled Diabetes: No Urinary Catheter: No History of Decub. Ulcer: No History Surgical Site Infection Following: None - Disposition Have Diagnosis and Disposition been Completed?: Yes Diagnosis: Contusion, knee, Contusion of elbow Disposition: HOME/ ROUTINE Disposition Time: 14:39 Patient Plan: Discharge Patient Problems: Current Active Problems Problem Status Onset Contusion, knee Acute Contusion of elbow Acute Condition: STABLE Discharge Instructions (ExitCare): Contusion (DC) Referrals: Link Manuel MD [Primary Care Provider] - Follow up with primary Forms: [employer] (Tajik)
--- NOTE | 2018-06-30 14:39 | RAD ---
Date of service: 06/30/2018 PROCEDURE: Radiographs of the right elbow. HISTORY: injury, focus olecranon COMPARISON: No prior. TECHNIQUE: 3 views obtained. FINDINGS: BONES: Normal. No fracture. JOINTS: Normal. No osteoarthritis. SOFT TISSUES: Normal. JOINT EFFUSION: None. OTHER FINDINGS: None. IMPRESSION: Unremarkable radiographs of the right elbow.
--- NOTE | 2018-06-30 14:40 | RAD ---
Date of service: 06/30/2018 PROCEDURE: Right knee two views HISTORY: injury, pain COMPARISON: 06/24/2016 TECHNIQUE: Two views FINDINGS: There is a chronic fracture fragment adjacent to the head of the fibula. This is unchanged. There is no acute fracture. There is no joint effusion. IMPRESSION: No acute findings
[2018-06-30 15:55] VITALS: BP 142/67; PULSE 75; TEMP 98; O2SAT 97
== END 2018-06-30 15:10 | disposition home or self-care (01) ==
LOC: ED 12:29
DX: S50.01XA Contusion of right elbow, initial encounter (principal); S80.01XA Contusion of right knee, initial encounter; W01.0XXA Fall on same level from slipping, tripping and stumbling without subsequent striking against object, initial encounter; Y93.01 Activity, walking, marching and hiking; Y92.830 Public park as the place of occurrence of the external cause